=== PATIENT | female | born 1955 | race Two or more races ===

== ENCOUNTER 2018-03-11 09:02 | Outpatient (CLI) | payer OTHER ==
[~2018-03-11 09:02] MED LIST: AMARYL; CARDURA XL4 MG/BOTTL PO; COUMADIN5 MG PO; DOXAZOSIN; GLIMEPIRIDE4 MG PO; HYZAAR 100-121 UDTAB PO; HYZAAR 100/25 T1 TAB PO; LANTUS100 U/ML SQ; METFORMIN HCL500 M1 PO; METFORMIN HCL500 MG PO; PLAVIX75 MG PO; PROTONIX20 MG PO; XARELTO10 MG PO
== END 2018-03-11 10:00 | disposition home or self-care (01) ==
LOC: NUCLEAR 09:02
DX: I70.213 Atherosclerosis of native arteries of extremities with intermittent claudication, bilateral legs (principal); I73.9 Peripheral vascular disease, unspecified; I10 Essential (primary) hypertension; E78.2 Mixed hyperlipidemia; E11.9 Type 2 diabetes mellitus without complications; E66.01 Morbid (severe) obesity due to excess calories; I87.2 Venous insufficiency (chronic) (peripheral)

== ENCOUNTER → 2018-03-16 | Outpatient (CLI) | payer OTHER | END | disposition home or self-care (01) | LOC: NUCLEAR 09:00 | DX: I70.213 Atherosclerosis of native arteries of extremities with intermittent claudication, bilateral legs (principal); I73.9 Peripheral vascular disease, unspecified; I10 Essential (primary) hypertension; E78.2 Mixed hyperlipidemia; E11.9 Type 2 diabetes mellitus without complications; E66.01 Morbid (severe) obesity due to excess calories ==

== ENCOUNTER 2018-03-18 08:43 | Outpatient (CLI) | payer OTHER | END 2018-03-18 09:02 | disposition home or self-care (01) | LOC: LAB 08:43 | DX: I10 Essential (primary) hypertension (principal); I73.89 Other specified peripheral vascular diseases; E78.2 Mixed hyperlipidemia; E11.9 Type 2 diabetes mellitus without complications; E66.01 Morbid (severe) obesity due to excess calories; D50.8 Other iron deficiency anemias; D51.8 Other vitamin B12 deficiency anemias; D51.1 Vitamin B12 deficiency anemia due to selective vitamin B12 malabsorption with proteinuria; D51.0 Vitamin B12 deficiency anemia due to intrinsic factor deficiency; E03.8 Other specified hypothyroidism; E06.3 Autoimmune thyroiditis; D68.8 Other specified coagulation defects; D64.89 Other specified anemias; Z12.31 Encounter for screening mammogram for malignant neoplasm of breast; R97.0 Elevated carcinoembryonic antigen [CEA]; R97.8 Other abnormal tumor markers ==

== ENCOUNTER 2018-03-18 09:59 | Outpatient (CLI) | payer OTHER | END 2018-03-18 17:00 | disposition home or self-care (01) | LOC: MAMO-SONO 09:59 | DX: Z12.31 Encounter for screening mammogram for malignant neoplasm of breast (principal); Z87.898 Personal history of other specified conditions; N63.10 Unspecified lump in the right breast, unspecified quadrant; N63.20 Unspecified lump in the left breast, unspecified quadrant; I10 Essential (primary) hypertension; I73.89 Other specified peripheral vascular diseases; E78.2 Mixed hyperlipidemia; E11.9 Type 2 diabetes mellitus without complications; E66.01 Morbid (severe) obesity due to excess calories; E06.3 Autoimmune thyroiditis; E03.8 Other specified hypothyroidism; E04.1 Nontoxic single thyroid nodule ==

== ENCOUNTER 2018-04-26 10:23 | Outpatient (CLI) | payer OTHER | END 2018-04-26 10:44 | disposition home or self-care (01) | LOC: SONOGRAMA 10:23 | DX: E06.3 Autoimmune thyroiditis (principal) ==

== ENCOUNTER 2018-06-28 19:56 | Emergency (ER) | payer OTHER ==
[~2018-06-28] VITALS: Ht 162.6 cm; Wt 129.3 kg
[2018-06-28] MEDS ORDERED: AVALIDE 300-121 EACH (20:44)
[2018-06-28] MEDS ORDERED: NEURONTIN300 MG (20:44)
[2018-06-28] MEDS ORDERED: ASA81 MG (20:45)
[2018-06-28] MEDS ORDERED: PLAVIX75 MG (20:45)
[2018-06-28] MEDS ORDERED: CARDURA XL4 MG (20:45)
[2018-06-29] MEDS ORDERED: LEVAQUIN750 MG PO (01:28)
== END 2018-06-29 02:29 | disposition home or self-care (01) ==
LOC: ER 19:56
DX: L03.116 Cellulitis of left lower limb (principal); L03.115 Cellulitis of right lower limb; I89.0 Lymphedema, not elsewhere classified; I87.2 Venous insufficiency (chronic) (peripheral)

== ENCOUNTER 2019-03-09 11:22 | Emergency (ER) | payer OTHER ==
[~2019-03-09] VITALS: Ht 162.6 cm; Wt 133.4 kg
[~2019-03-09 11:22] MED LIST changes: +ASA81 MG; +AVALIDE 300-121 EACH; +CARDURA XL4 MG; +LEVAQUIN750 MG PO; +NEURONTIN300 MG; +PLAVIX75 MG
== END 2019-03-09 18:49 | disposition home or self-care (01) ==
LOC: ER 11:22
DX: I87.2 Venous insufficiency (chronic) (peripheral) (principal); M16.12 Unilateral primary osteoarthritis, left hip; M79.605 Pain in left leg; M54.5 Low back pain

== ENCOUNTER 2019-12-09 12:55 | Outpatient (CLI) | payer OTHER | END 2019-12-09 13:06 | disposition home or self-care (01) | LOC: RAD 12:55 | DX: E04.1 Nontoxic single thyroid nodule (principal); M54.5 Low back pain; M54.2 Cervicalgia ==

== ENCOUNTER 2020-05-25 10:52 | Outpatient (CLI) | payer OTHER | END 2020-05-25 10:59 | disposition home or self-care (01) | LOC: MAMO-SONO 10:52 | PROVIDERS: ATTEND Internal Medicine | DX: M54.5 Low back pain (principal); Z12.31 Encounter for screening mammogram for malignant neoplasm of breast; N64.59 Other signs and symptoms in breast ==

== ENCOUNTER 2020-05-25 11:19 | Outpatient (CLI) | payer OTHER | END 2020-05-25 11:35 | disposition home or self-care (01) | LOC: NUCLEAR 11:19 | PROVIDERS: ATTEND Internal Medicine | DX: I87.2 Venous insufficiency (chronic) (peripheral) (principal); I73.9 Peripheral vascular disease, unspecified ==

== ENCOUNTER → 2020-05-25 12:42 | Outpatient (CLI) | payer OTHER | END | disposition home or self-care (01) | LOC: LAB 08:14 | PROVIDERS: ATTEND Internal Medicine | DX: D64.89 Other specified anemias (principal); I10 Essential (primary) hypertension; E11.9 Type 2 diabetes mellitus without complications; E78.00 Pure hypercholesterolemia, unspecified; N39.0 Urinary tract infection, site not specified; E03.8 Other specified hypothyroidism ==

== ENCOUNTER 2020-05-28 08:19 | Outpatient (CLI) | payer OTHER | END 2020-05-28 15:00 | disposition home or self-care (01) | LOC: LAB 08:19 | PROVIDERS: ATTEND Internal Medicine | DX: D64.89 Other specified anemias (principal); I10 Essential (primary) hypertension; E78.00 Pure hypercholesterolemia, unspecified; N39.0 Urinary tract infection, site not specified; E03.8 Other specified hypothyroidism; E11.9 Type 2 diabetes mellitus without complications ==

== ENCOUNTER 2020-05-28 09:13 | Outpatient (CLI) | payer OTHER | END 2020-05-28 09:24 | disposition home or self-care (01) | LOC: NUCLEAR 09:13 | PROVIDERS: ATTEND Internal Medicine | DX: I87.2 Venous insufficiency (chronic) (peripheral) (principal); I73.9 Peripheral vascular disease, unspecified ==

== ENCOUNTER 2021-01-30 11:24 | Outpatient (CLI) | payer OTHER | END 2021-01-30 11:30 | disposition home or self-care (01) | LOC: NUCLEAR 11:24 | PROVIDERS: ATTEND Internal Medicine | DX: I82.91 Chronic embolism and thrombosis of unspecified vein (principal); I87.2 Venous insufficiency (chronic) (peripheral) ==

== ENCOUNTER 2021-01-30 12:20 | Outpatient (CLI) | payer OTHER | END 2021-01-30 12:48 | disposition home or self-care (01) | LOC: SONOGRAMA 12:20 | PROVIDERS: ATTEND Internal Medicine | DX: N28.89 Other specified disorders of kidney and ureter (principal) ==

== ENCOUNTER 2022-05-15 09:07 | Outpatient (CLI) | payer OTHER | END 2022-05-15 09:08 | disposition home or self-care (01) | LOC: NUCLEAR 09:07 | PROVIDERS: ATTEND Thoracic Surgery (Cardiothoracic Vascular Surgery) | DX: I87.2 Venous insufficiency (chronic) (peripheral) (principal); Z88.0 Allergy status to penicillin ==

== ENCOUNTER 2022-05-26 09:48 | Outpatient (CLI) | payer OTHER | END 2022-05-26 09:52 | disposition home or self-care (01) | LOC: NUCLEAR 09:48 | PROVIDERS: ATTEND Thoracic Surgery (Cardiothoracic Vascular Surgery) | DX: I87.2 Venous insufficiency (chronic) (peripheral) (principal); Z88.0 Allergy status to penicillin ==

== ENCOUNTER 2023-04-04 00:11 | Inpatient (IN) | payer OTHER ==
[~2023-04-04] VITALS: Ht 162.6 cm; Wt 136.1 kg
[2023-04-08] MEDS ORDERED: FLUCONAZOLE150 MG (15:05)
[2023-04-08] MEDS ORDERED: LEVOTHYROXINE75 MCG (15:06)
[2023-04-08] MEDS ORDERED: ST. JOSEPH ASPI81 M2 (15:06)
[2023-04-13] MEDS ORDERED: CLOPIDOGREL BIS75 MG PO (11:44)
[2023-04-13] MEDS ORDERED: IPRATROPIU0.2 MG/1 M IH (11:44)
[2023-04-13] MEDS ORDERED: CARdura 4MG TABLET PO (11:44)
[2023-04-13] MEDS ORDERED: XOPENEX CO1.25 MG/0. IH (11:44)
[2023-04-13] MEDS ORDERED: Procardia Xl 30MG TA PO (11:45)
[2023-04-13] MEDS ORDERED: ST. JOSEPH ASPI81 M2 PO (11:45)
[2023-04-13] MEDS ORDERED: SIMVASTATIN40 MG PO (11:45)
[2023-04-13] MEDS ORDERED: FAMOTIDINE20 MG PO (11:46)
[2023-04-13] MEDS ORDERED: HUMALOG100 UNIT/1 SUBCUTANEO (11:46)
[2023-04-13] MEDS ORDERED: INSULIN GL100 UNIT/3 SUBCUTANEO (11:48)
== END 2023-04-13 13:01 | disposition home or self-care (01) | DRG 190 ==
LOC: ER 00:11 → MEDI 18:19
PROVIDERS: ADMIT Internal Medicine; ATTEND Internal Medicine
PROC: 5A09457 Assistance with Respiratory Ventilation, 24-96 Consecutive Hours, Continuous Positive Airway Pressure (ICD-10-PCS; principal; 2023-04-04)
PROC: BW24YZZ Computerized Tomography (CT Scan) of Chest and Abdomen using Other Contrast (ICD-10-PCS; 2023-04-04)
PROC: B24BZZZ Ultrasonography of Heart with Aorta (ICD-10-PCS; 2023-04-04)
PROC: 4A12X4Z Monitoring of Cardiac Electrical Activity, External Approach (ICD-10-PCS; 2023-04-04)
PROC: B54DZZZ Ultrasonography of Bilateral Lower Extremity Veins (ICD-10-PCS; 2023-04-05)
DX: J44.1 Chronic obstructive pulmonary disease with (acute) exacerbation (principal); J96.01 Acute respiratory failure with hypoxia; J96.02 Acute respiratory failure with hypercapnia; E66.2 Morbid (severe) obesity with alveolar hypoventilation; N17.9 Acute kidney failure, unspecified; I13.0 Hypertensive heart and chronic kidney disease with heart failure and stage 1 through stage 4 chronic kidney disease, or unspecified chronic kidney disease; I50.30 Unspecified diastolic (congestive) heart failure; E87.29 Other acidosis; Z79.4 Long term (current) use of insulin; E03.9 Hypothyroidism, unspecified; E11.65 Type 2 diabetes mellitus with hyperglycemia; E11.22 Type 2 diabetes mellitus with diabetic chronic kidney disease; N18.9 Chronic kidney disease, unspecified; Z20.822 Contact with and (suspected) exposure to COVID-19; F17.200 Nicotine dependence, unspecified, uncomplicated; Z99.89 Dependence on other enabling machines and devices

== ENCOUNTER 2024-02-14 16:14 | Emergency (ER) | payer OTHER ==
[~2024-02-14] VITALS: Ht 162.6 cm; Wt 127.0 kg
[~2024-02-14 16:14] MED LIST changes: +CARdura 4MG TABLET PO; +CLOPIDOGREL BIS75 MG PO; +FAMOTIDINE20 MG PO; +FLUCONAZOLE150 MG; +HUMALOG100 UNIT/1 SUBCUTANEO; +INSULIN GL100 UNIT/3 SUBCUTANEO; +IPRATROPIU0.2 MG/1 M IH; +LEVOTHYROXINE75 MCG; +Procardia Xl 30MG TA PO; +SIMVASTATIN40 MG PO; +ST. JOSEPH ASPI81 M2; +ST. JOSEPH ASPI81 M2 PO; +XOPENEX CO1.25 MG/0. IH
[2024-02-14] MEDS ORDERED: KETOROLAC TROMETHAMINE 60 MG VIAL IM ONE (20:30)
== END 2024-02-14 21:25 | disposition home or self-care (01) ==
LOC: ER
DX: M54.16 Radiculopathy, lumbar region (principal); Z88.0 Allergy status to penicillin; E05.80 Other thyrotoxicosis without thyrotoxic crisis or storm; I10 Essential (primary) hypertension; Z86.72 Personal history of thrombophlebitis; E11.9 Type 2 diabetes mellitus without complications; Z79.4 Long term (current) use of insulin
CPT/HCPCS: 72100; 96372; 99283; J1885

== ENCOUNTER 2025-02-13 13:20 | Inpatient (IN) | payer OTHER ==
[~2025-02-13] VITALS: Ht 152.4 cm; Wt 130.6 kg
[2025-02-13] MEDS ORDERED: VITAMIN D310 MCG/1 M (14:08)
[2025-02-13] MEDS ORDERED: HYDRALAZINE HCL25 MG (14:09)
[2025-02-13] MEDS ORDERED: 0.9 % SODIUM CHLORIDE 1,000 ML IV SCH (14:45)
[2025-02-13 15:48] LABS: HEMATOCRIT 36.4 % (36.0-45.00); HEMOGLOBIN 11.5 g/dL (12.0-15.00); MEAN CELL VOLUME 95.5 fL (80.00-100.00); MEAN CORPUSCULAR HEMOGLOBIN 30.1 pg (27.00-32.0); MEAN CORPUSCULAR HGB CONC 31.6 g/dl (32.0-36.0); PLATELET COUNT 308 K/uL (150-450); RED BLOOD COUNT 3.81 M/uL (4.00-6.00); RED CELL DISTRIBUTION WIDTH 15.3 % (11.5-14.5)
[2025-02-13 16:09] LABS: INR 1.03; PROTHROMBIN TIME 11.2 SECONDS (9.0-11.5)
[2025-02-13 16:14] LABS: ALBUMIN 2.8 gm/dL (3.4-5.0); BILIRUBIN TOTAL 0.29 mg/dL (0.3-1.2); CALCIUM 9.1 mg/dL (8.5-10.1); CREATININE SERUM 1.91 mg/dL (0.55-1.02); GFR 26.05; GLOBULINA 4.9 G/DL (2.4-3.5); POTASSIUM 3.96 mEq/L (3.5-5.1); TOTAL PROTEIN 7.7 gm/dL (6.4-8.2)
[2025-02-13 16:16] LABS: INFLUENZA A AG NEGATIVE (NEGATIVE)
[2025-02-13 16:25] LABS: COVID-19 AG NEGATIVE (NEGATIVE)
[2025-02-13] MEDS ORDERED: FUROsemide 40 MG/4 ML VIAL IV ONE (19:45)
[2025-02-13] MEDS ORDERED: FUROsemide 40 MG/4 ML VIAL ONE ×2 (19:56→23:45)
[2025-02-13 20:16] LABS: URINE APPEARANCE Clear; URINE BILIRRUBIN Negative (NEGATIVE); URINE BLOOD Moderate; URINE COLOR Yellow; URINE GLUCOSE Negative (NEGATIVE); URINE KETONE Negative (NEGATIVE); URINE LEUKOCYTE Negative; URINE NITRATE Negative; URINE PROTEIN >=1000 (NEGATIVE); URINE UROBILINOGEN 0.2 E.U./dl
[2025-02-13 20:20] LABS: URINE BACTERIA 318.2 uL (0.0-1933); URINE CAST 4.12 uL (0.0-1.40); URINE EPITHELIAL CELLS 10.9 uL (0.0-38.8); URINE RBC 59.5 uL (0.0-20.8)
[2025-02-13] MEDS ORDERED: IPRATROPIUM BROMIDE 0.5 MG/2.5 ML AMPUL.NEB IH SCH (22:02)
[2025-02-13] MEDS ORDERED: GABAPENTIN 300 MG CAPSULE PO SCH (22:06)
[2025-02-13] MEDS ORDERED: NITROGLYCERIN IN 5 % DEXTROSE 250 ML IV SCH (22:15)
[2025-02-13] MEDS ORDERED: ACETAMINOPHEN 500 MG GEL..CAP PO PRN (22:15)
[2025-02-13] MEDS ORDERED: NITROGLYCERIN IN 5 % DEXTROSE 50 MG/250 ML BOTTLE IV ONE (23:45)
[2025-02-13] MEDS ORDERED: IPRATROPIUM BROMIDE 0.5 MG/2.5 ML AMPUL.NEB IH ONE (23:52)
[2025-02-14] VITALS (24 sets, daily range): BP systolic 117–181; BP diastolic 51–74; O2SAT 96–100
[2025-02-14] MEDS ORDERED: FUROsemide 40 MG/4 ML VIAL IV SCH (01:00)
[2025-02-14 03:46] LABS: ABG pCO2 53.6 mmHg (35-45)
[2025-02-14 03:48] LABS: ABG PO2 55.5 mmHg (80-100); BASE EXCESS 5.3 mmol/l; BICARBONATE 31.7 mmol/l (23-25); SaO2 88.7 %; Tco2 33.4 mmol/l; o2 21 %
[2025-02-14 03:49] LABS: allen test SATISFACTORY; mode ROOM AIR; puncture site RADIAL RIGHT
[2025-02-14] MEDS ORDERED: LEVOTHYROXINE SODIUM 75 MCG TABLET PO SCH (06:00)
[2025-02-14] MEDS ORDERED: NITROGLYCERIN IN 5 % DEXTROSE 250 ML IV SCH (06:45)
[2025-02-14 06:58] LABS: CHOL HDL RATIO 3.6 (0-5.0); TSH 2.75 uIU/mL (0.358-3.74)
[2025-02-14] MEDS ORDERED: ATORVASTATIN CALCIUM 40 MG TABLET PO SCH (09:00)
[2025-02-14] MEDS ORDERED: FAMOTIDINE/PF 20 MG in 0.9 % SODIUM CHLORIDE 8 ML IV PUSH SCH (09:00)
[2025-02-14] MEDS ORDERED: ENOXAPARIN SODIUM 30 MG/0.3 ML SYRINGE SUBCUTANEO SCH (09:00)
[2025-02-14] MEDS ORDERED: IPRATROPIUM BROMIDE 0.5 MG/2.5 ML AMPUL.NEB IH ONE (17:31)
[2025-02-14] MEDS ORDERED: FUROsemide 40 MG/4 ML VIAL ONE (17:50)
[2025-02-15] VITALS (17 sets, daily range): BP systolic 109–176; BP diastolic 48–636; O2SAT 95–100
[2025-02-15] MEDS ORDERED: IPRATROPIUM BROMIDE 0.5 MG/2.5 ML AMPUL.NEB IH ONE ×2 (01:41→17:02)
[2025-02-15] MEDS ORDERED: FUROsemide 40 MG/4 ML VIAL ONE (02:15)
[2025-02-15 04:34] LABS: ERYTHROCYTE SEDIMENTATION RATE > 130 mm/hr
[2025-02-15 04:43] LABS: HEMATOCRIT 33.6 % (36.0-45.00); HEMOGLOBIN 10.4 g/dL (12.0-15.00); MEAN CELL VOLUME 98.9 fL (80.00-100.00); MEAN CORPUSCULAR HEMOGLOBIN 30.5 pg (27.00-32.0); MEAN CORPUSCULAR HGB CONC 30.8 g/dl (32.0-36.0); PLATELET COUNT 291 K/uL (150-450); RED CELL DISTRIBUTION WIDTH 15.5 % (11.5-14.5)
[2025-02-15 05:04] LABS: ALBUMIN 2.5 gm/dL (3.4-5.0); BILIRUBIN TOTAL 0.22 mg/dL (0.3-1.2); CALCIUM 8.9 mg/dL (8.5-10.1); CREATININE SERUM 2.59 mg/dL (0.55-1.02); GFR 18.33; GLOBULINA 4.3 G/DL (2.4-3.5); MAGNESIUM 2.1 mg/dL (1.8-2.4); PHOSPHOROUS 5.8 mg/dL (2.5-4.9); POTASSIUM 4.8 mEq/L (3.5-5.1); TOTAL PROTEIN 6.8 gm/dL (6.4-8.2)
[2025-02-15 05:13] LABS: C-REACTIVE PROTEIN 5.18 MG/DL (0.00-0.29)
[2025-02-15] MEDS ORDERED: DEXTROSE 50 % IN WATER 0.5 G/ML DISP.SYRIN IV PRN (07:30)
[2025-02-15] MEDS ORDERED: INSULIN LISPRO 1,000 UNIT/10 ML UNITS SUBCUTANEO PRN (07:30)
[2025-02-15] MEDS ORDERED: PROPOFOL 10,000 MCG/ML VIAL ONE (13:42)
[2025-02-15] MEDS ORDERED: MIDAZOLAM HCL 50 MG/10 ML VIAL IV SCH ×2 (14:30)
[2025-02-15] MEDS ORDERED: MIDAZOLAM HCL 100 MG in 0.9 % SODIUM CHLORIDE 100 ML IV SCH (14:45)
[2025-02-15] MEDS ORDERED: PROPOFOL 10,000 MCG/ML VIAL IV PUSH STA (15:00)
[2025-02-15 15:19] LABS: ABG PH 7.142 (7.35-7.45)
[2025-02-15 15:20] LABS: ABG PO2 136.9 mmHg (80-100); ABG pCO2 106.7 mmHg (35-45); BASE EXCESS 2.7 mmol/l; BICARBONATE 35.7 mmol/l (23-25); SaO2 97.9 %; allen test SATISFACTORY; mode BPAP; o2 50 %; puncture site RADIAL RIGHT
[2025-02-15] MEDS ORDERED: BUMETANIDE 2.5 MG/10 ML VIAL IV SCH (17:20)
[2025-02-15 19:04] LABS: ABG PH 7.406 (7.35-7.45); ABG pCO2 49.1 mmHg (35-45); BASE EXCESS 4.4 mmol/l; BICARBONATE 30.1 mmol/l (23-25); SaO2 99.6 %; Tco2 31.7 mmol/l
[2025-02-15 19:06] LABS: o2 100 %; puncture site RADIAL RIGHT
[2025-02-15 19:07] LABS: allen test SATISFACTORY; mode MECHANI VENTILATOR
[2025-02-16] VITALS (22 sets, daily range): BP systolic 122–184; BP diastolic 47–119; O2SAT 97–100
[2025-02-16] MEDS ORDERED: hydrALAZINE HCL 20 MG VIAL IV PRN (08:00)
[2025-02-16] MEDS ORDERED: CHLORHEXIDINE GLUCONATE 120 ML BOTTLE TOP ONE (08:25)
[2025-02-16 08:37] LABS: ABG PH 7.489 (7.35-7.45); ABG PO2 111.5 mmHg (80-100); ABG pCO2 41.7 mmHg (35-45); BICARBONATE 31.1 mmol/l (23-25); SaO2 98.8 %; Tco2 32.3 mmol/l
[2025-02-16] MEDS ORDERED: CHLORHEXIDINE GLUCONATE 15ML BRUSH KIT MM SCH (09:00)
[2025-02-16] MEDS ORDERED: POLYVINYL ALCOHOL 15 ML DROPS OP SCH (09:00)
[2025-02-16] MEDS ORDERED: hydrALAZINE HCL 25 MG TABLET PO SCH (09:00)
[2025-02-16 10:04] LABS: allen test SATISFACTORY; mode MECHANI VENTILATOR; puncture site RADIAL LEFT
[2025-02-16 10:05] LABS: o2 70 %
[2025-02-16] MEDS ORDERED: AMLODIPINE BESYLATE 5 MG TABLET PO SCH (10:41)
[2025-02-16] MEDS ORDERED: PROPOFOL 100 ML IV SCH (12:00)
[2025-02-16 15:33] LABS: PH,URINE 5.5 (5.0-8.0); URINE APPEARANCE Clear; URINE BILIRRUBIN Negative (NEGATIVE); URINE BLOOD Moderate; URINE COLOR Yellow; URINE GLUCOSE Negative (NEGATIVE); URINE KETONE Negative (NEGATIVE); URINE LEUKOCYTE Trace; URINE NITRATE Negative; URINE UROBILINOGEN 0.2 E.U./dl
[2025-02-16 15:36] LABS: URINE BACTERIA 18.3 uL (0.0-1933); URINE CAST 1.61 uL (0.0-1.40); URINE EPITHELIAL CELLS 6.8 uL (0.0-38.8); URINE WBC 16.9 uL (0.0-23.2)
[2025-02-16 15:45] LABS: URINE PROTEIN 100 (NEGATIVE)
[2025-02-16 16:43] LABS: HEMATOCRIT 30.5 % (36.0-45.00); MEAN CELL VOLUME 93.3 fL (80.00-100.00); MEAN CORPUSCULAR HEMOGLOBIN 30.6 pg (27.00-32.0); MEAN CORPUSCULAR HGB CONC 32.9 g/dl (32.0-36.0); PLATELET COUNT 243 K/uL (150-450); RED BLOOD COUNT 3.27 M/uL (4.00-6.00); RED CELL DISTRIBUTION WIDTH 14.5 % (11.5-14.5)
[2025-02-16 17:02] LABS: ALBUMIN 2.2 gm/dL (3.4-5.0); BILIRUBIN TOTAL 0.78 mg/dL (0.3-1.2); CALCIUM 8.1 mg/dL (8.5-10.1); CREATININE SERUM 3.76 mg/dL (0.55-1.02); GFR 11.92; GLOBULINA 3.5 G/DL (2.4-3.5); POTASSIUM 3.85 mEq/L (3.5-5.1); TOTAL PROTEIN 5.7 gm/dL (6.4-8.2)
[2025-02-17] VITALS (20 sets, daily range): BP systolic 108–179; BP diastolic 51–73; O2SAT 97–100
[2025-02-17 05:45] LABS: HEMOGLOBIN 9.5 g/dL (12.0-15.00); MEAN CELL VOLUME 94.8 fL (80.00-100.00); MEAN CORPUSCULAR HEMOGLOBIN 31.1 pg (27.00-32.0); MEAN CORPUSCULAR HGB CONC 32.8 g/dl (32.0-36.0); PLATELET COUNT 232 K/uL (150-450); RED BLOOD COUNT 3.06 M/uL (4.00-6.00); RED CELL DISTRIBUTION WIDTH 14.2 % (11.5-14.5)
[2025-02-17 06:28] LABS: BILIRUBIN TOTAL 0.87 mg/dL (0.3-1.2); CALCIUM 8.2 mg/dL (8.5-10.1); CREATININE SERUM 3.84 mg/dL (0.55-1.02); GFR 11.64; GLOBULINA 3.4 G/DL (2.4-3.5); MAGNESIUM 1.7 mg/dL (1.8-2.4); PHOSPHOROUS 2.3 mg/dL (2.5-4.9); POTASSIUM 3.76 mEq/L (3.5-5.1); TOTAL PROTEIN 5.4 gm/dL (6.4-8.2)
[2025-02-17 08:46] LABS: ABG PH 7.538 (7.35-7.45); ABG PO2 97.5 mmHg (80-100); ABG pCO2 36.7 mmHg (35-45); BASE EXCESS 7.7 mmol/l; BICARBONATE 30.5 mmol/l (23-25); SaO2 98.5 %; Tco2 31.7 mmol/l
[2025-02-17 08:47] LABS: allen test SATISFACTORY; mode MECHANI VENTILATOR; o2 50 %; puncture site RADIAL RIGHT
[2025-02-17] MEDS ORDERED: hydrALAZINE HCL 50 MG TABLET PO SCH (13:00)
[2025-02-17] MEDS ORDERED: ISOSORBIDE MONONITRATE 30 MG TABLET PO NR (17:00)
[2025-02-17] MEDS ORDERED: BUMETANIDE 2.5 MG/10 ML VIAL IV SCH (17:00)
[2025-02-17] MEDS ORDERED: MAGNESIUM SULFATE IN WATER 50 ML IV NR (18:00)
[2025-02-17] MEDS ORDERED: POTASSIUM PHOS,M-BASIC-D-BASIC 15 MM in 0.9 % SODIUM CHLORIDE 250 ML IV NR (18:00)
[2025-02-17] MEDS ORDERED: MEROPENEM 500 MG/VIAL VIAL IV SCH (21:00)
[2025-02-18] VITALS (14 sets, daily range): BP systolic 125–174; BP diastolic 42–63; O2SAT 97–100
[2025-02-18 07:52] LABS: ALBUMIN 1.7 gm/dL (3.4-5.0); BILIRUBIN TOTAL 0.64 mg/dL (0.3-1.2); CALCIUM 7.7 mg/dL (8.5-10.1); GFR 11.3; GLOBULINA 3.6 G/DL (2.4-3.5); POTASSIUM 3.47 mEq/L (3.5-5.1); TOTAL PROTEIN 5.3 gm/dL (6.4-8.2)
[2025-02-18 07:54] LABS: HEMATOCRIT 28.6 % (36.0-45.00); HEMOGLOBIN 9.4 g/dL (12.0-15.00); MEAN CELL VOLUME 94.3 fL (80.00-100.00); MEAN CORPUSCULAR HEMOGLOBIN 30.9 pg (27.00-32.0); MEAN CORPUSCULAR HGB CONC 32.7 g/dl (32.0-36.0); PLATELET COUNT 216 K/uL (150-450); RED BLOOD COUNT 3.03 M/uL (4.00-6.00); RED CELL DISTRIBUTION WIDTH 14.3 % (11.5-14.5)
[2025-02-18 07:55] LABS: CREATININE SERUM 3.94 mg/dL (0.55-1.02)
[2025-02-18 08:50] LABS: ABG PH 7.495 (7.35-7.45); ABG PO2 92.7 mmHg (80-100); BASE EXCESS 6.4 mmol/l; BICARBONATE 30.2 mmol/l (23-25); Tco2 31.4 mmol/l
[2025-02-18] MEDS ORDERED: ISOSORBIDE MONONITRATE 30 MG TABLET PO SCH (09:00)
[2025-02-18 09:06] LABS: allen test SATISFACTORY; mode MECHANI VENTILATOR; o2 50 %; puncture site RADIAL LEFT
[2025-02-18 14:59] LABS: URINE APPEARANCE Clear; URINE BILIRRUBIN Negative (NEGATIVE); URINE BLOOD Moderate; URINE COLOR Yellow; URINE GLUCOSE Negative (NEGATIVE); URINE KETONE Trace (NEGATIVE); URINE LEUKOCYTE Large; URINE NITRATE Negative
[2025-02-18 15:03] LABS: URINE BACTERIA 272.9 uL (0.0-1933); URINE CAST 1.61 uL (0.0-1.40); URINE EPITHELIAL CELLS 13.2 uL (0.0-38.8); URINE RBC 180.1 uL (0.0-20.8); URINE WBC 301.1 uL (0.0-23.2)
[2025-02-18 16:08] LABS: URINE PROTEIN 100 (NEGATIVE); URINE YEAST MODERATE /hpf
[2025-02-19] VITALS (16 sets, daily range): BP systolic 113–1129; BP diastolic 43–62; O2SAT 97–100
[2025-02-19 08:44] LABS: ABG PH 7.493 (7.35-7.45); ABG PO2 162.5 mmHg (80-100); BASE EXCESS 6.2 mmol/l; SaO2 99.6 %; Tco2 31.2 mmol/l
[2025-02-19 13:59] LABS: allen test SATISFACTORY; mode MECHANI VENTILATORA; o2 50 %; puncture site RADIAL RIGHT
[2025-02-20] VITALS (15 sets, daily range): BP systolic 113–151; BP diastolic 43–66; O2SAT 96–100
[2025-02-20 08:01] LABS: ABG PH 7.484 (7.35-7.45); ABG PO2 180.1 mmHg (80-100); ABG pCO2 40.4 mmHg (35-45); BASE EXCESS 5.8 mmol/l; BICARBONATE 29.7 mmol/l (23-25); SaO2 99.7 %; Tco2 30.9 mmol/l
[2025-02-20] MEDS ORDERED: CHLORHEXIDINE GLUCONATE 120 ML BOTTLE TOP ONE (10:28)
[2025-02-20 11:11] LABS: HEMATOCRIT 27.2 % (36.0-45.00); MEAN CELL VOLUME 94.7 fL (80.00-100.00); MEAN CORPUSCULAR HGB CONC 32.9 g/dl (32.0-36.0); PLATELET COUNT 244 K/uL (150-450); RED BLOOD COUNT 2.87 M/uL (4.00-6.00)
[2025-02-20 11:13] LABS: HEMOGLOBIN 8.9 g/dL (12.0-15.00)
[2025-02-20 12:18] LABS: ALBUMIN 1.7 gm/dL (3.4-5.0); BILIRUBIN TOTAL 0.5 mg/dL (0.3-1.2); CALCIUM 7.9 mg/dL (8.5-10.1); CREATININE SERUM 3.1 mg/dL (0.55-1.02); GFR 14.9; GLOBULINA 3.6 G/DL (2.4-3.5); MAGNESIUM 2.1 mg/dL (1.8-2.4); PHOSPHOROUS 3.6 mg/dL (2.5-4.9); POTASSIUM 3.53 mEq/L (3.5-5.1); TOTAL PROTEIN 5.3 gm/dL (6.4-8.2)
[2025-02-20 12:57] LABS: allen test SATISFACTORY; mode MECHANI VENTILATOR; o2 50 %; puncture site RADIAL LEFT
[2025-02-20] MEDS ORDERED: levoFLOXacin IN DEXTROSE 5 % 500MG/100ML PIGGYBAG IV SCH (17:00)
[2025-02-20] MEDS ORDERED: BUMETANIDE 2.5 MG/10 ML VIAL IV SCH (17:00)
[2025-02-21] VITALS (12 sets, daily range): BP systolic 127–156; BP diastolic 49–60; O2SAT 96–100
[2025-02-21 06:16] LABS: HEMATOCRIT 27.3 % (36.0-45.00); MEAN CELL VOLUME 95.4 fL (80.00-100.00); MEAN CORPUSCULAR HEMOGLOBIN 30.7 pg (27.00-32.0); MEAN CORPUSCULAR HGB CONC 32.2 g/dl (32.0-36.0); PLATELET COUNT 263 K/uL (150-450); RED BLOOD COUNT 2.86 M/uL (4.00-6.00)
[2025-02-21 06:33] LABS: HEMOGLOBIN 8.8 g/dL (12.0-15.00)
[2025-02-21 06:42] LABS: ALBUMIN 1.8 gm/dL (3.4-5.0); BILIRUBIN TOTAL 0.42 mg/dL (0.3-1.2); CALCIUM 7.9 mg/dL (8.5-10.1); CREATININE SERUM 3.04 mg/dL (0.55-1.02); GFR 15.24; GLOBULINA 3.8 G/DL (2.4-3.5); POTASSIUM 3.32 mEq/L (3.5-5.1); TOTAL PROTEIN 5.6 gm/dL (6.4-8.2)
[2025-02-21 08:17] LABS: ABG PH 7.453 (7.35-7.45); ABG PO2 105.1 mmHg (80-100); ABG pCO2 45.2 mmHg (35-45); BICARBONATE 30.9 mmol/l (23-25); SaO2 98.4 %; Tco2 32.3 mmol/l
[2025-02-21] MEDS ORDERED: METHYLPREDNISOLONE SOD SUCC 40 MG VIAL IV ONE (09:45)
[2025-02-21 10:34] LABS: allen test SATISFACTORY; mode MECHANI VENTILATOR; o2 40 %; puncture site RADIAL LEFT
[2025-02-21] MEDS ORDERED: POTASSIUM CHLORIDE 20MEQ/100ML H2O PB IV NR (12:00)
[2025-02-21] MEDS ORDERED: PANTOPRAZOLE SODIUM 40 MG/VIAL VIAL IV NR (12:00)
[2025-02-21] MEDS ORDERED: QUETIAPINE FUMARATE 25 MG TABLET PO SCH (17:00)
[2025-02-21] MEDS ORDERED: ALBUMIN HUMAN 100 ML VIAL IV SCH (17:00)
[2025-02-21] MEDS ORDERED: BUMETANIDE 2.5 MG/10 ML VIAL IV SCH (21:00)
[2025-02-22] VITALS (8 sets, daily range): BP systolic 115–144; BP diastolic 44–93; O2SAT 99–100
[2025-02-22 06:25] LABS: HEMATOCRIT 26.9 % (36.0-45.00); MEAN CELL VOLUME 94.1 fL (80.00-100.00); MEAN CORPUSCULAR HGB CONC 33.3 g/dl (32.0-36.0); PLATELET COUNT 271 K/uL (150-450); RED BLOOD COUNT 2.86 M/uL (4.00-6.00)
[2025-02-22 06:26] LABS: MEAN CORPUSCULAR HEMOGLOBIN 31.4 pg (27.00-32.0)
[2025-02-22 07:01] LABS: ALBUMIN 2.6 gm/dL (3.4-5.0); BILIRUBIN TOTAL 0.51 mg/dL (0.3-1.2); CALCIUM 8.3 mg/dL (8.5-10.1); CREATININE SERUM 2.79 mg/dL (0.55-1.02); GFR 16.82; GLOBULINA 3.5 G/DL (2.4-3.5); MAGNESIUM 2.2 mg/dL (1.8-2.4); PHOSPHOROUS 3.2 mg/dL (2.5-4.9); POTASSIUM 3.71 mEq/L (3.5-5.1); TOTAL PROTEIN 6.1 gm/dL (6.4-8.2)
[2025-02-22 08:57] LABS: ABG PH 7.482 (7.35-7.45); ABG PO2 136.7 mmHg (80-100); ABG pCO2 39.2 mmHg (35-45); BASE EXCESS 4.9 mmol/l; BICARBONATE 28.6 mmol/l (23-25); SaO2 99.3 %; Tco2 29.9 mmol/l
[2025-02-22] MEDS ORDERED: PANTOPRAZOLE SODIUM 40 MG/VIAL VIAL IV SCH (09:00)
[2025-02-22 09:33] LABS: allen test NO SATISFACTORY; mode MECHANI VENTILATOR; o2 40 %; puncture site RADIAL RIGHT
[2025-02-22 10:28] LABS: ABG PH 7.372 (7.35-7.45); ABG pCO2 53.5 mmHg (35-45); BASE EXCESS 3.8 mmol/l; BICARBONATE 30.4 mmol/l (23-25); SaO2 99.2 %; Tco2 32.1 mmol/l
[2025-02-22 10:39] LABS: allen test SATISFACTORY; mode MECHANI VENTILATOR; o2 35 %; puncture site RADIAL RIGHT
[2025-02-22] MEDS ORDERED: LEVALBUTEROL HCL 0.63 MG/3 ML SOLUTION IH ONE (10:42)
[2025-02-22] MEDS ORDERED: LEVALBUTEROL HCL 0.63 MG/3 ML SOLUTION IH SCH (14:42)
[2025-02-22] MEDS ORDERED: levoFLOXacin IN DEXTROSE 5 % 150 ML IV SCH (17:00)
[2025-02-22] MEDS ORDERED: IPRATROPIUM BROMIDE 0.5 MG/2.5 ML AMPUL.NEB IH SCH (17:00)
[2025-02-23 04:00] VITALS: BP 130/42; O2SAT 100
[2025-02-23 06:01] LABS: HEMATOCRIT 28.3 % (36.0-45.00); HEMOGLOBIN 9.1 g/dL (12.0-15.00); MEAN CELL VOLUME 96.1 fL (80.00-100.00); MEAN CORPUSCULAR HEMOGLOBIN 30.9 pg (27.00-32.0); MEAN CORPUSCULAR HGB CONC 32.1 g/dl (32.0-36.0); PLATELET COUNT 312 K/uL (150-450); RED BLOOD COUNT 2.94 M/uL (4.00-6.00)
[2025-02-23 06:51] LABS: ALBUMIN 2.6 gm/dL (3.4-5.0); BILIRUBIN TOTAL 0.5 mg/dL (0.3-1.2); CALCIUM 8.5 mg/dL (8.5-10.1); CREATININE SERUM 2.63 mg/dL (0.55-1.02); GFR 18.01; GLOBULINA 3.5 G/DL (2.4-3.5); POTASSIUM 3.38 mEq/L (3.5-5.1); TOTAL PROTEIN 6.1 gm/dL (6.4-8.2)
[2025-02-23 07:11] VITALS: BP 151/51; O2SAT 100
[2025-02-23 12:17] VITALS: BP 135/48; O2SAT 98
[2025-02-23] MEDS ORDERED: DEXTROSE 50 % IN WATER 0.5 G/ML VIAL IV PRN (14:15)
[2025-02-23 16:17] VITALS: BP 148/42; O2SAT 100
[2025-02-23] MEDS ORDERED: POTASSIUM BICARBONATE/CIT AC 25 MEQ TABLET.EFF PO SCH (17:00)
[2025-02-23 20:00] VITALS: BP 158/52; O2SAT 98
[2025-02-23 23:36] VITALS: BP 106/63; O2SAT 100
[2025-02-24] VITALS (7 sets, daily range): BP systolic 126–164; BP diastolic 46–69; O2SAT 97–100
[2025-02-24 07:22] LABS: HEMATOCRIT 28.8 % (36.0-45.00); HEMOGLOBIN 9.1 g/dL (12.0-15.00); MEAN CELL VOLUME 96.3 fL (80.00-100.00); MEAN CORPUSCULAR HEMOGLOBIN 30.4 pg (27.00-32.0); MEAN CORPUSCULAR HGB CONC 31.6 g/dl (32.0-36.0); PLATELET COUNT 332 K/uL (150-450); RED BLOOD COUNT 2.99 M/uL (4.00-6.00); RED CELL DISTRIBUTION WIDTH 13.8 % (11.5-14.5)
[2025-02-24 08:07] LABS: ALBUMIN 2.4 gm/dL (3.4-5.0); BILIRUBIN TOTAL 0.51 mg/dL (0.3-1.2); CALCIUM 8.2 mg/dL (8.5-10.1); CREATININE SERUM 1.99 mg/dL (0.55-1.02); GFR 24.85; GLOBULINA 3.1 G/DL (2.4-3.5); PHOSPHOROUS 2.8 mg/dL (2.5-4.9); POTASSIUM 3.24 mEq/L (3.5-5.1); TOTAL PROTEIN 5.5 gm/dL (6.4-8.2)
[2025-02-24 08:09] LABS: MAGNESIUM 1.4 mg/dL (1.8-2.4)
[2025-02-24 12:21] LABS: ABG PH 7.401 (7.35-7.45); ABG PO2 82.8 mmHg (80-100); ABG pCO2 55.4 mmHg (35-45); BICARBONATE 33.6 mmol/l (23-25); SaO2 96.3 %; Tco2 35.3 mmol/l
[2025-02-24 12:44] LABS: allen test SATISFACTORY; mode VENTURY MASKA; o2 35 %; puncture site RADIAL RIGHT
[2025-02-24] MEDS ORDERED: POTASSIUM PHOS,M-BASIC-D-BASIC 15 MM in 0.9 % SODIUM CHLORIDE 250 ML IV NR (12:45)
[2025-02-24] MEDS ORDERED: POTASSIUM BICARBONATE/CIT AC 25 MEQ TABLET.EFF PO SCH (13:00)
[2025-02-24] MEDS ORDERED: MAGNESIUM SULFATE IN WATER 4 GM/100 ML PIGGYBACK IV STA (13:03)
[2025-02-24] MEDS ORDERED: POTASSIUM CHLORIDE 20MEQ/100ML H2O PB IV NR (13:15)
[2025-02-24] MEDS ORDERED: AMLODIPINE BESYLATE 5 MG TABLET PO SCH (17:00)
[2025-02-24] MEDS ORDERED: BUMETANIDE 2.5 MG/10 ML VIAL IV SCH (21:00)
[2025-02-24] MEDS ORDERED: MELATONIN 5 MG TABLET PO PRN (23:45)
[2025-02-25] VITALS (9 sets, daily range): BP systolic 143–173; BP diastolic 61–63; O2SAT 89–99
[2025-02-25 08:31] LABS: ABG PH 7.353 (7.35-7.45); ABG PO2 85.6 mmHg (80-100); SaO2 96.1 %
[2025-02-25 09:02] LABS: ABG pCO2 64.4 mmHg (35-45); allen test SATISFACTORY; mode VENTURY MASK; o2 35 %; puncture site RADIAL RIGHT
[2025-02-26] VITALS (9 sets, daily range): BP systolic 144–145; BP diastolic 61–68; O2SAT 90–100
[2025-02-26 07:49] LABS: ALBUMIN 2.7 gm/dL (3.4-5.0); BILIRUBIN TOTAL 0.55 mg/dL (0.3-1.2); CALCIUM 8.7 mg/dL (8.5-10.1); CREATININE SERUM 2.18 mg/dL (0.55-1.02); GFR 22.36; GLOBULINA 3.6 G/DL (2.4-3.5); MAGNESIUM 2.3 mg/dL (1.8-2.4); PHOSPHOROUS 3.2 mg/dL (2.5-4.9); POTASSIUM 4.22 mEq/L (3.5-5.1); TOTAL PROTEIN 6.3 gm/dL (6.4-8.2)
[2025-02-26 08:41] LABS: ABG PH 7.399 (7.35-7.45); ABG PO2 66.3 mmHg (80-100); ABG pCO2 58.6 mmHg (35-45); BASE EXCESS 8.4 mmol/l; BICARBONATE 35.4 mmol/l (23-25); SaO2 93.2 %; Tco2 37.2 mmol/l
[2025-02-26 09:11] LABS: allen test SATISFACTORY; mode VENTURY MASK; puncture site RADIAL RIGHT
[2025-02-26 09:12] LABS: o2 35 %
[2025-02-27] VITALS (8 sets, daily range): BP systolic 135–166; BP diastolic 46–72; O2SAT 90–99
[2025-02-27 06:43] LABS: HEMOGLOBIN 9.8 g/dL (12.0-15.00); MEAN CELL VOLUME 95.4 fL (80.00-100.00); MEAN CORPUSCULAR HEMOGLOBIN 31.1 pg (27.00-32.0); MEAN CORPUSCULAR HGB CONC 32.6 g/dl (32.0-36.0); PLATELET COUNT 396 K/uL (150-450); RED BLOOD COUNT 3.15 M/uL (4.00-6.00); RED CELL DISTRIBUTION WIDTH 13.9 % (11.5-14.5)
[2025-02-27 07:29] LABS: ALBUMIN 2.5 gm/dL (3.4-5.0); BILIRUBIN TOTAL 0.59 mg/dL (0.3-1.2); CALCIUM 8.8 mg/dL (8.5-10.1); CREATININE SERUM 2.32 mg/dL (0.55-1.02); GFR 20.82; GLOBULINA 3.6 G/DL (2.4-3.5); POTASSIUM 4.1 mEq/L (3.5-5.1); TOTAL PROTEIN 6.1 gm/dL (6.4-8.2)
[2025-02-27 09:18] LABS: ABG PH 7.405 (7.35-7.45); ABG PO2 88.3 mmHg (80-100); ABG pCO2 58.1 mmHg (35-45); BASE EXCESS 8.6 mmol/l; BICARBONATE 35.5 mmol/l (23-25); Tco2 37.3 mmol/l
[2025-02-27 10:58] LABS: allen test SATISFACTORY; mode VENTURY MASK; o2 35 %; puncture site RADIAL RIGHT
[2025-02-27] MEDS ORDERED: PANTOPRAZOLE SODIUM 40 MG TABLET.DR PO NR (16:00)
[2025-02-28 00:30] VITALS: O2SAT 96
[2025-02-28] MEDS ORDERED: PANTOPRAZOLE SODIUM 40 MG TABLET.DR PO SCH (09:00)
[2025-03-01] VITALS (9 sets, daily range): BP systolic 136–149; BP diastolic 56–80; O2SAT 90–99
[2025-03-01 07:02] LABS: HEMOGLOBIN 9.3 g/dL (12.0-15.00); MEAN CELL VOLUME 96.9 fL (80.00-100.00); PLATELET COUNT 381 K/uL (150-450); RED BLOOD COUNT 2.99 M/uL (4.00-6.00)
[2025-03-01 07:39] LABS: ALBUMIN 2.6 gm/dL (3.4-5.0); BILIRUBIN TOTAL 0.43 mg/dL (0.3-1.2); CALCIUM 8.6 mg/dL (8.5-10.1); CREATININE SERUM 2.93 mg/dL (0.55-1.02); GFR 15.9; GLOBULINA 3.4 G/DL (2.4-3.5); MAGNESIUM 1.8 mg/dL (1.8-2.4); PHOSPHOROUS 3.7 mg/dL (2.5-4.9); POTASSIUM 4.04 mEq/L (3.5-5.1)
[2025-03-02] VITALS (8 sets, daily range): BP systolic 106–145; BP diastolic 44–68; O2SAT 83–99
[2025-03-02 06:17] LABS: HEMATOCRIT 28.4 % (36.0-45.00); HEMOGLOBIN 9.3 g/dL (12.0-15.00); MEAN CELL VOLUME 95.3 fL (80.00-100.00); MEAN CORPUSCULAR HEMOGLOBIN 31.2 pg (27.00-32.0); MEAN CORPUSCULAR HGB CONC 32.8 g/dl (32.0-36.0); PLATELET COUNT 370 K/uL (150-450); RED BLOOD COUNT 2.98 M/uL (4.00-6.00); RED CELL DISTRIBUTION WIDTH 14.2 % (11.5-14.5)
[2025-03-02 06:58] LABS: ABG PH 7.404 (7.35-7.45); ABG PO2 76.8 mmHg (80-100); ABG pCO2 57.1 mmHg (35-45); BASE EXCESS 8.1 mmol/l; BICARBONATE 34.9 mmol/l (23-25); SaO2 95.6 %; Tco2 36.7 mmol/l
[2025-03-02 07:17] LABS: allen test SATISFACTORY; mode ROOM AIR; o2 21 %; puncture site RADIAL RIGHT
[2025-03-02 07:21] LABS: ALBUMIN 2.6 gm/dL (3.4-5.0); BILIRUBIN TOTAL 0.47 mg/dL (0.3-1.2); CALCIUM 8.6 mg/dL (8.5-10.1); CREATININE SERUM 3.19 mg/dL (0.55-1.02); GFR 14.41; GLOBULINA 3.6 G/DL (2.4-3.5); POTASSIUM 3.66 mEq/L (3.5-5.1); TOTAL PROTEIN 6.2 gm/dL (6.4-8.2)
[2025-03-02] MEDS ORDERED: NICOTINE 21MG/24HR PATCH.TD24 TD SCH (13:00)
[2025-03-02] MEDS ORDERED: BUMETANIDE 1 MG TABLET PO SCH (17:00)
[2025-03-02] MEDS ORDERED: BUMETANIDE 0.5 MG TABLET PO SCH (17:00)
[2025-03-03 02:00] VITALS: O2SAT 90
[2025-03-03 03:04] VITALS: BP 107/50; O2SAT 100
[2025-03-03 06:11] LABS: HEMATOCRIT 26.8 % (36.0-45.00); MEAN CELL VOLUME 95.9 fL (80.00-100.00); MEAN CORPUSCULAR HGB CONC 32.6 g/dl (32.0-36.0); PLATELET COUNT 321 K/uL (150-450); RED BLOOD COUNT 2.79 M/uL (4.00-6.00); RED CELL DISTRIBUTION WIDTH 14.7 % (11.5-14.5)
[2025-03-03 06:35] LABS: HEMOGLOBIN 8.7 g/dL (12.0-15.00); MEAN CORPUSCULAR HEMOGLOBIN 31.1 pg (27.00-32.0)
[2025-03-03 06:52] LABS: ALBUMIN 2.4 gm/dL (3.4-5.0); BILIRUBIN TOTAL 0.38 mg/dL (0.3-1.2); CREATININE SERUM 2.9 mg/dL (0.55-1.02); GFR 16.09; GLOBULINA 3.3 G/DL (2.4-3.5); POTASSIUM 3.62 mEq/L (3.5-5.1); TOTAL PROTEIN 5.7 gm/dL (6.4-8.2)
[2025-03-03 07:56] VITALS: BP 146/67; O2SAT 94
[2025-03-03] MEDS ORDERED: AMLODIPINE BESYL5 MG PO (12:20)
[2025-03-03] MEDS ORDERED: ISOSORBIDE MONO30 MG PO (12:20)
[2025-03-03] MEDS ORDERED: LIPITOR40 M1 PO (12:20)
[2025-03-03] MEDS ORDERED: LEVOTHYROXINE75 MCG PO (12:21)
[2025-03-03] MEDS ORDERED: HYDRALAZINE HCL50 MG PO (12:21)
[2025-03-03] MEDS ORDERED: BUMETANIDE0.5 MG PO (12:21)
[2025-03-03] MEDS ORDERED: EPOETIN ALFA-EPBX 10,000 UNIT/ML VIAL (Retacrit) SUBCUTANEO NR (13:00)
[2025-03-03] MEDS ORDERED: BUMETANIDE 0.5 MG TABLET PO SCH (17:00)
== END 2025-03-03 12:56 | disposition home or self-care (01) | DRG 291 ==
LOC: ER 13:21 → ICU-2 22:06 → ICU 02-16 05:50 → MEDI 02-24 20:46
PROVIDERS: Emergency Medicine; General Practice; Internal Medicine; Internal Medicine Infectious Disease; ADMIT Internal Medicine; ATTEND Internal Medicine
PROC: B24BYZZ Ultrasonography of Heart with Aorta using Other Contrast (ICD-10-PCS; 2025-02-13)
PROC: B54DZZZ Ultrasonography of Bilateral Lower Extremity Veins (ICD-10-PCS; 2025-02-13)
PROC: 0BH18EZ Insertion of Endotracheal Airway into Trachea, Via Natural or Artificial Opening Endoscopic (ICD-10-PCS; principal; 2025-02-15)
PROC: 5A1955Z Respiratory Ventilation, Greater than 96 Consecutive Hours (ICD-10-PCS; 2025-02-15)
PROC: BW24ZZZ Computerized Tomography (CT Scan) of Chest and Abdomen (ICD-10-PCS; 2025-02-16)
PROC: 02HV33Z Insertion of Infusion Device into Superior Vena Cava, Percutaneous Approach (ICD-10-PCS; 2025-02-16)
PROC: 4A12X4Z Monitoring of Cardiac Electrical Activity, External Approach (ICD-10-PCS; 2025-02-24)
DX: I50.9 Heart failure, unspecified (principal); J96.90 Respiratory failure, unspecified, unspecified whether with hypoxia or hypercapnia; J90 Pleural effusion, not elsewhere classified; N17.9 Acute kidney failure, unspecified; N39.0 Urinary tract infection, site not specified; I27.20 Pulmonary hypertension, unspecified; E66.9 Obesity, unspecified; E03.9 Hypothyroidism, unspecified; J44.9 Chronic obstructive pulmonary disease, unspecified; E11.9 Type 2 diabetes mellitus without complications; Z79.4 Long term (current) use of insulin; R60.1 Generalized edema; R60.9 Edema, unspecified; I25.10 Atherosclerotic heart disease of native coronary artery without angina pectoris